=== PATIENT | male | born 1970 | race Caucasian/White ===

== ENCOUNTER 2022-07-22 22:05 | Emergency (ER) | payer MEDICARE, SELFPAY ==
--- NOTE | ~2022-07-22 | XR_ITS ---
EXAMINATION: XR chest 2V DATE: 07/23/2022 01:19 INDICATION: Syncope. TECHNIQUE: Frontal and lateral views of the chest were obtained. COMPARISON: None. FINDINGS: The chest demonstrates clear lungs without pneumonia, pleural effusion, or pneumothorax. Th e heart size is normal. IMPRESSION: 1. No acute cardiopulmonary disease. Reviewed, dictated and finalized at location A. AGE CLERK
[2022-07-22 22:08] VITALS: BP 128/84; PULSE 60; RESP 16; TEMP 36.9; O2SAT 100
--- NOTE | 2022-07-22 22:08 | ECG_ITS ---
Measurements Intervals [place] Rate: 61 P: 71 VA: 148 QRS: 75 QRSD: 88 T: 68 QT: 433 QTc: 436 Interpretive Statements SINUS RHYTHM POSSIBLE LEFT ATRIAL ENLARGEMENT [-0.1mV P WAVE IN V1/V2] INCOMPLETE RIGHT FOUZIA BRANCH BLOCK NO PREVIOUS ECG AVAILABLE FOR COMPARISON Electronically Signed On 07-23-2022 10:21:44 MOWING MACHINE OPERATOR by Amina Figueroa M.D.
[2022-07-22 22:44] LABS: Basophils Absolute Auto 0.1 K/mm3 (0.0-0.1); Basophils Percent Auto 0.9 % (0.2-1.2); Eosinophils Absolute Auto 0.1 K/mm3 (0-0.3); Eosinophils Percent Auto 1.5 % (0-4.4); Hematocrit 46.5 % (42.0-52.0); Immature Granulocyte Absolute 0.01 K/mm3 (0.00-0.031); Immature Granulocyte Percent A 0.1 % (0-0.5); Lymphocytes Absolute Auto 3.44 K/mm3 (0.9-3.2); Lymphocytes Percent Auto 46.2 % (18.3-44.2); Mean Corpuscular HGB Conc 32.3 g/dl (32-36); Mean Corpuscular Hemoglobin 32.4 pg (26-34); Mean Corpuscular Volume 100.4 fl (80-100); Mean Platelet Volume 9.8 fl (7.4-10.4); Monocytes Absolute Auto 0.5 K/mm3 (0.1-0.6); Monocytes Percent Auto 6.3 % (2.6-8.5); Neutrophils Absolute Auto 3.4 K/mm3 (1.3-6.7); Platelet Count Result 267 k/mm3 (150-375); Red Blood Count 4.63 M/mm3 (4.6-6.20); Red Cell Distribution Width 11.7 % (11.5-14.5); White Blood Count 7.5 K/mm3 (4.5-10.0)
[2022-07-22 23:01] LABS: Alanine Aminotransferase 41 U/L (6-50); Alkaline Phosphatase 90 U/L (38-126); Anion Gap 10 mmol/L (8-16); Aspartate Amino Transferase 39 U/L (17-59); Bilirubin,Total 0.3 mg/dL (0.2-1.3); Blood Urea Nitrogen 11 mg/dL (9-20); Calcium 8.6 mg/dL (8.4-10.2); Carbon Dioxide 21 mmol/L (22-30); Chloride 111 mmol/L (98-107); Estimated CRCL calculation 73 ml/min; Estimated Glomerular Filt Rate > 60; Glucose 109 mg/dL (65-110); Potassium 3.5 mmol/L (3.4-5.0); Sodium 142 mmol/L (137-145)
[2022-07-22 23:51] VITALS: BP 132/68; PULSE 58; RESP 18; O2SAT 100
--- NOTE | 2022-07-23 00:54 | ED.SYNCOPE ---
HPI - Syncope General Chief Complaint: Syncope Stated Complaint: syncopal Time Seen by Provider: 07/23/22 00:07 History of Present Illness HPI narrative: This is a 52-year-old male with past medical history of bipolar disorder, recently started on Latuda who presents the emergency department after 2 episodes of syncope. The patient states he has been in his usual state of health, when he woke from bed this evening, walked to the kitchen became lightheaded and lost consciousness. He is not sure if he hit his head. He states he was able to stand immediately afterwards, felt lightheaded again and lost consciousness. A family friend who is present with his states she heard him hit the floor, the second time he lost consciousness he was in front of her and she assisted him to the floor without head injury. The patient states he otherwise feels well, he denies chest pain, shortness of breath, diarrhea, vomiting or bleeding from any source. Related Data Home Medications Medication Instructions Recorded Confirmed lurasidone 40 mg tablet (Latuda) 40 mg PO BID 07/22/22 07/22/22 Allergies Allergy/AdvReac Type Severity Reaction Status Date / Time Penicillins Allergy Unknown Verified 07/22/22 22:13 Review of Systems Review of Systems: CONSTITUTIONAL: Denies fever, chills, or sweats. EYES: Denies visual changes, redness, or discharge. ENT: Denies rhinorrhea, congestion, sore throat, or otalgia. CARDIOVASCULAR: Denies chest pain, palpitations, or edema. RESPIRATORY: Denies cough or dyspnea. GASTROINTESTINAL: Denies abdominal pain, nausea, vomiting, or diarrhea. GENITOURINARY: Denies dysuria or hematuria. SKIN: Denies rash or itching. MUSCULOSKELETAL: Denies back pain, joint pain, or myalgia. NEUROLOGIC: Syncope x2 denies headache, numbness, dizziness, or weakness. PSYCHIATRIC: Denies anxiety or depression. PMFSH Past Medical History Medical History Bipolar disorder Schizophrenia Social History Social History (Updated 07/23/22 @ 00:59 by Yaniv Miller MD) Smoking status: Never smoker Alcohol intake: never Substance use: never Exam Narrative: GENERAL: Well-developed, well-nourished, and in no acute distress. HEAD: Normocephalic, atraumatic. EYES: PERRLA and EOMI. ENT: Nares clear, no rhinorrhea or epistaxis. Mucous membranes moist. Oropharynx without tonsillar hypertrophy exudate or other lesions. NECK: Supple. No adenopathy or masses. No carotid bruits or JVD CHEST: Clear to auscultation. No respiratory distress. No wheezes rales or rhonchi HEART: Regular rate and rhythm. No murmur heard. Normal peripheral pulses. ABDOMEN: Soft, nontender, nondistended, normal active bowel sounds. EXTREMITIES: Normal range of motion. No edema. SKIN: Warm, dry, no rash. NEURO: No focal deficits. Alert and oriented x3. PSYCH: Normal mood and affect. Course Course Emergency Course: 01:00 - On review of documentation, Latuda can cause orthostatic hypotension and syncope due to alpha1-adrenergic receptor antagonism. 01:26 - Review of chest x-ray is nonconcerning for pneumothorax, consolidation or other acute cardiopulmonary process. EKG shows incomplete right bundle branch block but is otherwise unremarkable. [place] syncope rule score -3 points (very low risk). I suspect the patient's symptoms are related to Latuda. Advised the patient to contact his primary care doctor and psychiatrist to adjust his medications. Discussed return emergency precautions including signs/symptoms of ACS and arrhythmia. Patient voices understanding and is comfortable with the plan. All questions answered to his satisfaction. Vital Signs Vital signs: Vital Signs Temperature 98.4 F 07/22/22 22:08 Pulse Rate 60 07/22/22 22:08 Respiratory Rate 16 07/22/22 22:08 Blood Pressure 128/84 07/22/22 22:08 Pulse Oximetry 100 07/22/22 22:08 Temperature 98.4 F 07/22/22 2
== END 2022-07-23 01:49 | disposition home or self-care (01) ==
PROVIDERS: Emergency Provider Preventive Medicine Aerospace Medicine; PCP Internal Medicine
DX: R55 Syncope and collapse (principal); T43.595A Adverse effect of other antipsychotics and neuroleptics, initial encounter; F31.9 Bipolar disorder, unspecified; F20.9 Schizophrenia, unspecified; I45.10 Unspecified right bundle-branch block; R94.31 Abnormal electrocardiogram [ECG] [EKG]
CPT/HCPCS: 36415; 71046; 80053; 85025; 93005; 99284